=== PATIENT | male | born 1995 | race Caucasian/White ===

== ENCOUNTER 2018-07-16 14:54 | Emergency (ER) | payer OTHER, SELFPAY ==
[2018-07-16] MEDS ORDERED: Dexamethasone 10 MG/ML VIAL ONE (15:11)
[2018-07-16] MEDS ORDERED: Diazepam 5 MG TAB ONE (15:11)
[2018-07-16] MEDS ORDERED: Ketorolac Tromethamine 30 MG/ML VIAL ONE (15:19)
[2018-07-16] MEDS ORDERED: Morphine 4 MG/ML VIAL ONE (15:57)
== END 2018-07-16 16:39 | disposition home or self-care (01) ==
LOC: SCSER 14:54
DX: M54.5 Low back pain (principal); F41.9 Anxiety disorder, unspecified; F17.290 Nicotine dependence, other tobacco product, uncomplicated; Z79.899 Other long term (current) drug therapy
CPT/HCPCS: 96374; 96375; J1100; J1885; J2270